=== PATIENT | female | born 1960 | race Caucasian/White ===

== ENCOUNTER → 2016-11-22 | Outpatient (CLI) | payer BC, OTHER ==
[~2016-11-22] MED LIST: ACTOS30 MG PO; BUPROPION XL300 MG PO; CALCIUM 500 MG1 EACH PO; COMBIVENT RESPIM4 GM IH; DAILY VALUE1 EACH PO; FLEXERIL10 MG PO; GLIPIZIDE XL10 M1 PO; Glucotrol PO; INVOKANA100 MG PO; JANUVIA100 MG PO; LANTUS 3 M100 UNITS1 SC; MIRALAX17 GM PO; NEXIUM40 MG PO; PERCOCET 5/31 TABLET PO; PRAVASTATIN SOD80 MG PO; PREMARIN0.3 MG PO; PREMARIN0.625 MG PO; Pravachol PO; Protonix PO; Reglan PO; VESICARE5 MG PO; VICTOZA0.6 MG/0.2 SC; VITAMIN B122500 MCG PO; Wellbutrin XL PO; ZYRTEC10 M2 PO
== END | disposition home or self-care (01) ==
LOC: EKG 12:42
DX: I51.7 Cardiomegaly (principal); I07.1 Rheumatic tricuspid insufficiency; I70.0 Atherosclerosis of aorta
CPT/HCPCS: 93306

== ENCOUNTER → 2017-01-20 | Outpatient (CLI) | payer BC, OTHER | END | disposition home or self-care (01) | LOC: NUC 08:17 | DX: K21.9 Gastro-esophageal reflux disease without esophagitis (principal); K59.00 Constipation, unspecified | CPT/HCPCS: 78264; A9541 ==

== ENCOUNTER 2017-11-27 07:38 | Emergency (ER) | payer BC, OTHER ==
[~2017-11-27] VITALS: Ht 170.2 cm; Wt 80.9 kg
[2017-11-27 08:14] LABS: BASOPHIL (%) 0.7 % (0-1); BASOPHIL COUNT 0.1 K/uL (0-0.1); EOSINOPHIL COUNT 0.1 K/uL (0-0.3); HEMATOCRIT 41.7 % (36.0-46.0); HEMOGLOBIN 13.7 G/DL (11.9-15.5); IMMATURE GRANULOCYTE (%) 0.2 % (0.0-0.7); LYMPHOCYTE (%) 25.3 % (15-42); LYMPHOCYTE COUNT 2.1 K/uL (1.0-2.8); MCH 28.5 PG (29.0-34.0); MCHC 32.9 G/DL (30.0-36.0); MCV 86.7 FL (83-99); MONOCYTE (%) 8.7 % (3-12); MONOCYTE COUNT 0.7 K/uL (0-0.8); NEUTROPHIL (%) 64.1 % (45-76); NEUTROPHIL COUNT 5.2 K/uL (1.8-6.4); PLATELET COUNT 237 K/uL (156-360); RBC DIS.WIDTH-CV 12.9 % (11.8-14.6); RBC DIS.WIDTH-SD 40.6 % (39-53); RED BLOOD COUNT 4.81 M/uL (3.80-5.20); WHITE BLOOD COUNT 8.1 K/uL (4.1-10.2)
[2017-11-27 08:36] LABS: APPEARANCE SL.HAZY ((CLEAR)); BILIRUBIN NEGATIVE; BLOOD NEGATIVE; COLOR YELLOW ((YELLOW)); GLUCOSE (STRIP) >=500; KETONES 20; LEUKOCYTES SMALL; NITRITE POSITIVE; PROTEIN (STRIP) NEGATIVE; SPECIFIC GRAVITY 1.038 (1.000-1.030); UROBILINOGEN 0.2 MG/DL (0.2-1.0)
[2017-11-27 08:37] LABS: CHLORIDE 107 MEQ/L (99-109); POTASSIUM 3.9 MEQ/L (3.7-5.4); SODIUM 143 MEQ/L (136-147)
[2017-11-27 08:42] LABS: CREATININE 0.7 MG/DL (0.6-1.3); GFR ESTIMATE (CALCULATED) > 59 mL/min/; GLUCOSE 119 mg/dL (70-99); UREA NITROGEN (BUN) 12 mg/dL (9-23)
[2017-11-27 08:52] LABS: EPITHELIAL CELLS 2+ /HPF; MUCUS NONE SEEN /LPF
[2017-11-27 08:53] LABS: BACTERIA 4+ /HPF; RED BLOOD CELLS NONE SEEN /HPF (0-5)
[2017-11-27] MEDS ORDERED: CIPRO500 MG PO (10:24)
[2017-11-27] MEDS ORDERED: DIFLUCAN50 MG PO (10:24)
[2017-11-27] MEDS ORDERED: PERCOCET 5/31 TABLET PO (10:42)
[2017-11-27 10:50] VITALS: BP 119/83
== END 2017-11-27 10:56 | disposition home or self-care (01) ==
LOC: EME 07:38
PROVIDERS: Emergency Medicine
DX: N39.0 Urinary tract infection, site not specified (principal); K57.30 Diverticulosis of large intestine without perforation or abscess without bleeding; K76.0 Fatty (change of) liver, not elsewhere classified; K21.9 Gastro-esophageal reflux disease without esophagitis; E11.9 Type 2 diabetes mellitus without complications; Z79.4 Long term (current) use of insulin; E78.5 Hyperlipidemia, unspecified; J45.909 Unspecified asthma, uncomplicated; G43.909 Migraine, unspecified, not intractable, without status migrainosus; F41.9 Anxiety disorder, unspecified; Z88.5 Allergy status to narcotic agent
CPT/HCPCS: 74177; 80048; 81003; 85025; 99281; 99284; J3010; J7030